=== PATIENT | male | born 1945 | race Caucasian/White ===

== ENCOUNTER → 2017-02-13 | Outpatient (CLI) | payer OTHER | LOC: BHFA 15:00 | PROVIDERS: ATTEND Internal Medicine Cardiovascular Disease | DX: I48.91 Unspecified atrial fibrillation (principal) ==

== ENCOUNTER 2017-02-25 10:15 | Inpatient (IN) | payer OTHER ==
[2017-02-25 13:09] LABS: % IMMATURE GRANULYOCYTES 0.4 % (0.0-1.1); ABSOLUTE IMMATURE GRANULOCYTES 0.03 10^3/uL (0.00-0.10); ADD DIFF? NO; ADD MORPH? NO; ADD SCAN? NO; ATYPICAL LYMPHOCYTE FLAG 10 (0-99); FRAGMENT RBC FLAG 0 (0-99); HEMATOCRIT 43.8 % (40.0-51.0); HEMOGLOBIN 15.3 g/dL (13.7-17.5); LEFT SHIFT FLG 0 (0-99); LIPEMIA HEMOLYSIS FLAG 90 (0-99); MEAN CELL HEMOGLOBIN 33.9 pg (27.9-34.1); MEAN CELL HEMOGLOBIN CONCENTR. 34.9 g/dL (32.4-36.7); MEAN CELL VOLUME 97.1 fL (81.5-99.8); MEAN PLATELET VOLUME 10.7 fL (8.7-11.7); PLATELET CLUMPS FLAG 0 (0-99); PLATELET COUNT 132 10^3/uL (150-400); RED BLOOD CELL COUNT 4.51 10^6/uL (4.40-6.38); RED CELL DISTRIBUTION WIDTH 13.6 % (11.5-15.2)
--- NOTE | 2017-02-25 13:09 | CPEKG ---
Heart Rate: 72 RR Interval: 833 QRSD Interval: 102 QT Interval: 456 QTC Interval: 500 QRS [place]: 37 T Wave [place]: 33 EKG Severity - ABNORMAL ECG - EKG Impression: ATRIAL FIBRILLATION EKG Impression: MULTIPLE VENTRICULAR PREMATURE COMPLEXES EKG Impression: BORDERLINE T ABNORMALITIES, INFERIOR LEADS EKG Impression: BORDERLINE PROLONGED QT INTERVAL Electronically Signed By: Benjamin Early 25-Feb-2017 16:14:18
[2017-02-25 13:23] LABS: INR 1.47 (0.83-1.16); PROTIME(PATIENT) 17.8 SEC (12.0-15.0)
[2017-02-25 13:24] LABS: APTT 34.6 SEC (23.0-38.0)
[2017-02-25 13:34] LABS: ANION GAP 10 mEq/L (8-16); CALCIUM 9.3 mg/dL (8.5-10.4); CARBON DIOXIDE 22 mEq/l (22-31); CHLORIDE 104 mEq/L (97-110); GLOMERULAR FILTRATION RATE > 60; GLUCOSE 84 mg/dL (70-100); MAGNESIUM 1.7 mg/dL (1.6-2.3); POTASSIUM 4.5 mEq/L (3.5-5.2); SODIUM 136 mEq/L (134-144)
[2017-02-25] MEDS: SOTALOL HCL 80 MG TAB PO SCH ×2 (14:30→23:25)
--- NOTE | 2017-02-25 15:05 | PDCARPN ---
Cardiology Progress Note Assessment/Plan: Assessment: ATRIAL FIB--- Well rate controlled. Will increase Sotolol from 80 BID to 120 BID. Tolerating increased dose well. Plan: Monitor EKG closely after each Sotolol dose. 02/25/17 15:03 Subjective: IS feeling well. Reviewed/Discussed With: hospitalist, multidisciplinary team Objective: Vital Signs (8 Hrs) Temp Pulse Resp BP Pulse Ox 02/25/17 14:30 73 115/65 02/25/17 10:40 36.7 C 95 17 120/98 H 92 Intake/Output (24 Hrs) 02/24/17 02/25/17 02/26/17 05:59 05:59 05:59 Other: Weight 73.9 kg Result Diagrams: 02/25/17 12:55 02/25/17 12:55 - Physical Exam Constitutional: no apparent distress Cardiovascular: no murmurs, no rubs, no gallops, irregularly irregular Respiratory: clear to auscultate bilat, no crackles, no wheezes Skin: warm, no edema Neurologic: AAOx3 Psychiatric: cooperative, interactive - . Pending Discharge Within 24 Hours: No ICD10 Worksheet Patient Problems: Problems Problem Status Onset Atrial fibrillation and flutter Acute
--- NOTE | 2017-02-25 16:29 | CPEKG ---
Heart Rate: 70 RR Interval: 857 QRSD Interval: 100 QT Interval: 367 QTC Interval: 396 QRS [place]: 49 T Wave [place]: 213 EKG Severity - ABNORMAL ECG - EKG Impression: ATRIAL FIBRILLATION EKG Impression: MULTIFORM VENTRICULAR PREMATURE COMPLEXES EKG Impression: NONSPECIFIC T ABNORMALITIES, DIFFUSE LEADS Electronically Signed By: Eliud Washington 25-Feb-2017 17:39:20
[2017-02-25] MEDS: ATORVASTATIN CALCIUM 40 MG TAB PO SCH (21:17)
[2017-02-25] MEDS: APIXABAN 5 MG TAB PO SCH (21:17)
--- NOTE | 2017-02-26 02:02 | CPEKG ---
Heart Rate: 88 RR Interval: 682 QRSD Interval: 96 QT Interval: 403 QTC Interval: 488 QRS [place]: 63 T Wave [place]: 249 EKG Severity - ABNORMAL ECG - EKG Impression: ATRIAL FIBRILLATION EKG Impression: MULTIFORM VENTRICULAR PREMATURE COMPLEXES Electronically Signed By: Eliud Washington 26-Feb-2017 08:21:13
[2017-02-26 05:27] LABS: INR 1.49 (0.83-1.16)
[2017-02-26 05:43] LABS: ANION GAP 12 mEq/L (8-16); CARBON DIOXIDE 19 mEq/l (22-31); CHLORIDE 106 mEq/L (97-110); GLOMERULAR FILTRATION RATE > 60; GLUCOSE 81 mg/dL (70-100); MAGNESIUM 1.7 mg/dL (1.6-2.3); POTASSIUM 4.3 mEq/L (3.5-5.2); SODIUM 137 mEq/L (134-144)
[2017-02-26] MEDS: NAPROXEN SODIUM 220 MG TAB PO SCH (08:14)
[2017-02-26] MEDS: ASPIRIN 81 MG CHEWABLE TAB PO SCH (08:15)
[2017-02-26] MEDS: APIXABAN 5 MG TAB PO SCH ×2 (08:16→21:55)
[2017-02-26] MEDS: OMEGA-3 ETHYL EST-LOVAZA 1 GM CAP PO SCH (08:16)
[2017-02-26] MEDS: PANTOPRAZOLE SODIUM 40 MG TAB PO SCH (08:17)
[2017-02-26] MEDS ORDERED: NON-FORMULARY NEW DRUG (Omeprazole Magnesium [Prilosec Otc] 20 MG) PO SCH (09:00)
[2017-02-26] MEDS: CYANOCOBALAMIN/FA/PYRIDOXINE 1 EACH TAB PO SCH (10:37)
[2017-02-26] MEDS: SOTALOL HCL 80 MG TAB PO SCH ×2 (11:02→21:55)
[2017-02-26] MEDS: LOSARTAN POTASSIUM 25 MG TAB PO SCH (11:02)
--- NOTE | 2017-02-26 11:52 | PDCARPN ---
Cardiology Progress Note Assessment/Plan: Assessment: ATRIAL FIB--- Well rate controlled. Will increase Sotolol from 80 BID to 120 BID. Tolerating increased dose well. Plan: Monitor EKG closely after each Sotolol dose. 02/25/17 15:03 02/26/17 11:45 Tolerating the Sotolol 80 mg BID well. QTC 488 today. He has had Bigeminy PAC' s, and PVC's periodically. Remains in A Fib with rate 60 to 70's. He is asymptomatic. Objective: Vital Signs (8 Hrs) Temp Pulse Resp BP Pulse Ox 02/26/17 07:53 36.5 C 77 16 148/68 H 94 02/26/17 04:28 36.7 C 64 18 122/75 H 92 Intake/Output (24 Hrs) 02/25/17 02/26/17 02/27/17 05:59 05:59 05:59 Intake Total 1050 Output Total 25 Balance 1025 Intake: Oral (ml) 1050 Output: Urine (ml) 25 Urinal 25 Other: Weight 73.9 kg Number of Voids Toilet 2 Result Diagrams: 02/25/17 12:55 02/26/17 04:28 - Physical Exam Constitutional: no apparent distress Cardiovascular: no murmurs, no rubs, no gallops, irregularly irregular Respiratory: clear to auscultate bilat, no crackles, no wheezes Skin: warm, no edema Neurologic: AAOx3 Psychiatric: cooperative, interactive ICD10 Worksheet Patient Problems: Problems Problem Status Onset Atrial fibrillation and flutter Acute
--- NOTE | 2017-02-26 13:10 | CPEKG ---
Heart Rate: 69 RR Interval: 870 QRSD Interval: 96 QT Interval: 456 QTC Interval: 489 QRS [place]: 36 T Wave [place]: 33 EKG Severity - ABNORMAL ECG - EKG Impression: ATRIAL FIBRILLATION EKG Impression: VENTRICULAR PREMATURE COMPLEX EKG Impression: BORDERLINE PROLONGED QT INTERVAL Electronically Signed By: Eliud Washington 26-Feb-2017 14:24:30
--- NOTE | 2017-02-26 15:10 | ASMTCASEMG ---
Living Arrangements What is your living arrangement? Who do you live Answers: With Spouse with? Type Of Residence What kind of residence do you live in? Answers: House Discharge Plan Comments Coordination Status Comments Notes: Spoke w/ RN, reviewed chart. Pt was admitted for Sotalol loading. PT consult ordered and awaiting r esults. Pt discharge needs are unclear at this time. Anticipating independent d/c when medically stable. CM to follow. Date Signed: 02/26/2017 03:09 PM Electronically Signed By:Leny Murdock
[2017-02-26] MEDS ORDERED: MIDAZOLAM 2 MG/2 ML VIAL IVP PRN (15:20)
[2017-02-26] MEDS: ATORVASTATIN CALCIUM 40 MG TAB PO SCH (21:55)
--- NOTE | 2017-02-27 00:15 | CPEKG ---
Heart Rate: 86 RR Interval: 698 QRSD Interval: 86 QT Interval: 384 QTC Interval: 460 QRS [place]: 46 T Wave [place]: 246 EKG Severity - ABNORMAL ECG - EKG Impression: ATRIAL FIBRILLATION EKG Impression: MULTIPLE VENTRICULAR PREMATURE COMPLEXES EKG Impression: NONSPECIFIC T ABNORMALITIES, DIFFUSE LEADS Electronically Signed By: Benjamin Early 27-Feb-2017 08:36:22
[2017-02-27 05:39] LABS: APTT 35.4 SEC (23.0-38.0); INR 1.45 (0.83-1.16); PROTIME(PATIENT) 17.6 SEC (12.0-15.0)
[2017-02-27 05:43] LABS: ANION GAP 10 mEq/L (8-16); CALCIUM 9.1 mg/dL (8.5-10.4); CARBON DIOXIDE 23 mEq/l (22-31); CHLORIDE 104 mEq/L (97-110); GLOMERULAR FILTRATION RATE > 60; GLUCOSE 87 mg/dL (70-100); POTASSIUM 4.1 mEq/L (3.5-5.2); SODIUM 137 mEq/L (134-144)
[2017-02-27] MEDS ORDERED: NS 1,000 ML IV ONE (06:00)
[2017-02-27] MEDS ORDERED: PROPOFOL 200 MG/20 ML VIAL IVP ONE (06:42)
[2017-02-27] MEDS ORDERED: NS 500 ML IV ONE (06:42)
[2017-02-27] MEDS ORDERED: BENZOCAINE UNIT DOSE SPRAY HURRICAINE MM ONE (06:42)
[2017-02-27] MEDS ORDERED: ATROPINE SULFATE 1 MG/10 ML SYR IVP ONE (06:42)
--- NOTE | 2017-02-27 07:37 | PDANEPAE ---
ANE History of Present Illness 71 yo for MATHEW/CV for afib ANE Past Medical History - Cardiovascular History Hx Hypertension: Yes Hx Arrhythmias: Yes Hx Chest Pain: No Hx Coronary Artery / Peripheral Vascular Disease: Yes Hx CHF / Valvular Disease: No Hx Palpitations: No - Pulmonary History Hx COPD: No Hx Asthma/Reactive Airway Disease: No Hx Recent Upper Respiratory Infection: No Hx Oxygen in Use at Home: No Hx Sleep Apnea: Yes - Endocrine History Hx Diabetes: No - Chronic Pain History Chronic Pain: Yes (joints) ANE Review of Systems - Exercise capacity METS (RN): 2 METS ANE Patient History - Allergies Allergies/Adverse Reactions: IV CONTRAST Allergy (Intermediate, Uncoded 08/04/09 17:44) HIVES/ITCHING - Home Medications Home medications: home medication list seen and reviewed Home Medications: Apixaban [Eliquis] 5 mg PO BID 02/25/17 [Last Taken 02/25/17] Aspirin [Aspirin 81mg (*)] 81 mg PO DAILY 02/25/17 [Last Taken 02/25/17] Atorvastatin Calcium [Lipitor 40 mg (*)] 40 mg PO HS 02/25/17 [Last Taken ] Cyanocobalamin/FA/Pyridoxine [Folbic] 1 each PO DAILY 02/25/17 [Last Taken 02/25] Losartan Potassium [Cozaar 25 mg (*)] 25 mg PO DAILY 02/25/17 [Last Taken ] Naproxen Sodium [Aleve 220 MG (*)] 440 mg PO DAILY 02/25/17 [Last Taken 02/25/17 ] [place]-3 Ethyl Est-Lovaza [Lovaza 1 gm (*)] 1 gm PO DAILY 02/25/17 [Last Taken ] Omeprazole Magnesium [Prilosec Otc] 20 mg PO DAILY 02/25/17 [Last Taken 02/25/17 ] Sotalol HCl [Sotalol] 80 mg PO BID 02/25/17 [Last Taken 02/25/17] - NPO status NPO Status: no food or drink >8 hours - Smoking Hx Smoking Status: Former smoker ANE Labs/Vital Signs - Labs Result Diagrams: 02/25/17 12:55 02/27/17 04:17 - Vital Signs Blood Pressure: 103/65 Heart Rate: 56 Respiratory Rate: 16 O2 Sat (%): 95 Height: 5 ft 9 in Weight: 73.9 kg ANE Physical Exam - Airway Neck exam: FROM Mallampati Score: Class 2 Mouth exam: normal dental/mouth exam - Pulmonary Pulmonary: no respiratory distress - Cardiovascular Cardiovascular: regular rate and rhythym - ASA Status ASA Status: III ANE Anesthesia Plan Anesthesia Plan: MAC (ivga)
--- NOTE | 2017-02-27 08:51 | PDTEE1 ---
MATHEW Cardioversion Procedure Indications: Atrial Fibrillation Consent: Signed and in Chart Anticoagulation: Eliquis Procedural Details: Pads were placed in anterior-posterior position. MATHEW probe was advanced and standard images obtained. There is no evidence of left atrial or left atrial appendage thrombus. Synchronized cardioversion attempt #1: 200J Results: Normal sinus rhythm Conclusions: Successful Cardioversion (No MATHEW was done since patietn was on uninterrupted Eliquis x 2 years) Patient Problems: Problems Problem Status Onset Atrial fibrillation and flutter Acute
--- NOTE | 2017-02-27 08:58 | CPEKG ---
Heart Rate: 55 RR Interval: 1091 P-R Interval: 200 QRSD Interval: 92 QT Interval: 496 QTC Interval: 475 P [place]: 18 QRS [place]: 51 T Wave [place]: 51 EKG Severity - NORMAL ECG - EKG Impression: SINUS RHYTHM Electronically Signed By: Eliud Washington 27-Feb-2017 10:59:38
[2017-02-27] MEDS: OMEGA-3 ETHYL EST-LOVAZA 1 GM CAP PO SCH (10:29)
[2017-02-27] MEDS: PANTOPRAZOLE SODIUM 40 MG TAB PO SCH (10:29)
[2017-02-27] MEDS: APIXABAN 5 MG TAB PO SCH (10:29)
[2017-02-27] MEDS: LOSARTAN POTASSIUM 25 MG TAB PO SCH (10:29)
[2017-02-27] MEDS: SOTALOL HCL 80 MG TAB PO SCH (10:30)
[2017-02-27] MEDS: ASPIRIN 81 MG CHEWABLE TAB PO SCH (10:32)
[2017-02-27] MEDS: NAPROXEN SODIUM 220 MG TAB PO SCH (10:32)
[2017-02-27] MEDS: CYANOCOBALAMIN/FA/PYRIDOXINE 1 EACH TAB PO SCH (10:33)
--- NOTE | 2017-02-27 11:49 | POSTANESTH ---
Post Anesthetic Evaluation Cardiovascular Status: Normal, Stable Respiratory Status: Normal, Stable Level of Consciousness/Mental Status: Alert and Oriented Pain Control: Adequate, Prn Tx Ordered Nausea/Vomiting Control: Adequate, Prn Tx Ordered Complications Possibly Related to Anesthesia: None Noted
[2017-02-27 12:16] VITALS: BP 98/65; PULSE 56; RESP 18; TEMP 98.9; O2SAT 91
--- NOTE | 2017-02-27 12:25 | CPEKG ---
Heart Rate: 55 RR Interval: 1091 P-R Interval: 200 QRSD Interval: 88 QT Interval: 516 QTC Interval: 494 P [place]: 13 QRS [place]: 45 T Wave [place]: 64 EKG Severity - BORDERLINE ECG - EKG Impression: SINUS RHYTHM EKG Impression: BORDERLINE T ABNORMALITIES, ANT-LAT LEADS EKG Impression: BORDERLINE PROLONGED QT INTERVAL Electronically Signed By: Benjamin Early 27-Feb-2017 14:09:16
--- NOTE | 2017-02-27 17:55 | ASDISCHSUM ---
Discharge Information Plan Status:Home with No Needs Medically Cleared to Leave: Discharge Date:02/27/2017 02:00 PM CM D/C Disposition:Home, Routine, Self-Care ADT D/C Disposition:Home, Routine, Self-Care Projected Discharge Date:02/27/2017 02:00 PM Transportation at D/C: Discharge Delay Reason: Follow-Up Date:02/27/2017 02:00 PM Discharge Slot: Final Diagnosis: Placement Information Patient Contact Information Contact Name:MINI Relationship: Address:[id number] [place] [address] City:[place] Alternate Phone: [facility]/Zip Code:[place] [address] Email: Financial Information Financial Class: Primary Plan Desc:MEDICARE INPATIENT Primary Plan Number:[id number] Secondary Plan Desc:TAE Sharma [facility] Secondary Plan Number:[id number] Assessment Information [facility] Initial CM Assessment Living Arrangements What is your living Answers: With Spouse arrangement? Who do you live with? Type Of Residence What kind of residence do Answers: House you live in? Discharge Plan Comments Coordination Status Comments Notes: Spoke w/ RN, reviewed chart. Pt was admitted for Sotalol loading. PT consult ordered and awaiting results. Pt discharge needs are unclear at this time. Anticipating independent d/c when medically stable. CM to follow. Date Signed: 02/26/2017 03:09 PM Electronically Signed By:Leny Murdock Intervention Information
--- NOTE | 2017-03-02 11:07 | GDS ---
[f rep st] DISCHARGE SUMMARY ADMIT DIAGNOSES: 1. Atrial fibrillation. 2. Sotalol up titration. DISCHARGE DIAGNOSIS: Atrial fibrillation, resolved to sinus bradycardia. COURSE OF HOSPITALIZATION: The patient came into the hospital for sotalol up titration. He was ref erred to Dr. Washington, chief dispatcher service, by Dr. Jh Larry. He has a history of coronary artery disea se, atrial fibrillation, PVCs, and left lower leg amputation related to the [place]. The patien t had a recent Holter monitor that showed a 35% to 40% PVC burden, with nonsustained VT. He notes p alpitations, however, has had no syncope. He had been on sotalol 80 mg twice daily, and was up titrated to 120 mg twice daily with good tolera nce. He has been up ambulating, with no dizziness, lightheadedness, and no palpitations. On the morning of 02/27/2017, Dr. Washington took him to the [facility], ere he had a successful DC cardioversion, returning to a sinus rhythm. He has rare PVCs and PACs. No episodes of VT noted. He will go home on sotalol 120 mg twice daily. He is anticoagulated for t he past 2 years on Eliquis. DISCHARGE MEDICATIONS: He will go home on omeprazole 20 mg daily, Folbic 1 daily, Eliquis 5 mg twic e daily, sotalol 120 mg twice daily, Lovaza 1 g daily ,Cozaar 25 mg daily, Lipitor 40 mg at bedtime, aspirin 81 mg daily, Aleve 220 mg 2 tablets daily. ALLERGIES: He has known allergy to IV contrast. PHYSICAL EXAMINATION ON DISCHARGE: VITAL SIGNS: Blood pressure 107/67, heart rate 53 and regular, temperature 37.2 Celsius. EKG on day of discharge, sinus bradycardia, with a rate of 52. DISCHARGE PLAN: He will be discharged home, to continue on the increased dose of sotalol to 120 twi ce daily. He will continue on Eliquis twice daily. He will follow up with Dr. Jh Larry, his primary book retailer, in 7-10 days. He does have this ap pointment scheduled. At this time, he currently is stable for discharge. /[id number]/MODL
== END 2017-02-27 14:00 | disposition home or self-care (01) | DRG 310 ==
LOC: F2W 10:15
PROVIDERS: ADMIT Internal Medicine Cardiovascular Disease; ATTEND Internal Medicine Cardiovascular Disease
DX: I48.0 Paroxysmal atrial fibrillation (principal); I25.10 Atherosclerotic heart disease of native coronary artery without angina pectoris; I10 Essential (primary) hypertension; Z89.612 Acquired absence of left leg above knee
CPT/HCPCS: J0461; J2704

== ENCOUNTER → 2017-10-23 | Outpatient (CLI) | payer OTHER | LOC: BHFA 15:00 | PROVIDERS: ATTEND Internal Medicine Cardiovascular Disease | DX: I49.3 Ventricular premature depolarization (principal); I48.91 Unspecified atrial fibrillation ==

== ENCOUNTER → 2018-06-18 | Outpatient (CLI) | payer OTHER | LOC: BHFA 11:30 | PROVIDERS: ATTEND Internal Medicine Cardiovascular Disease | DX: I48.91 Unspecified atrial fibrillation (principal); I25.10 Atherosclerotic heart disease of native coronary artery without angina pectoris | CPT/HCPCS: 93306-PO ==

== ENCOUNTER → 2018-11-14 | Outpatient (CLI) | payer OTHER | LOC: BHFA 11:30 | PROVIDERS: ATTEND Internal Medicine Cardiovascular Disease | DX: I48.91 Unspecified atrial fibrillation (principal) ==